=== PATIENT | female | born 1965 | race African-American/Black ===

== ENCOUNTER 2016-11-16 10:00 | Day surgery (SDC) | payer BC, OTHER ==
[2016-11-15 13:57] VITALS: BMI 27.1
[2016-11-16 10:44] VITALS: TEMP 98.2
[2016-11-16] MEDS ORDERED: PROPOFOL 20 ML ONE (12:02)
[2016-11-16] MEDS ORDERED: MIDAZOLAM HCL 2 MG/2 ML SINGLE DOSE VIAL ONE (12:02)
[2016-11-16] MEDS ORDERED: LIDOCAINE HCL 1%, 10 MG/ML (50 mL VIAL) IJ ONE (12:17)
[2016-11-16] MEDS ORDERED: BUPIVACAINE HCL/PF 0.25% (2.5MG/ML) 10 ML VIAL IJ ONE (12:17)
[2016-11-16] MEDS ORDERED: BETAMET ACET/BETAMET NA PH 30 MG/5 ML VIAL IJ ONE (12:18)
[2016-11-16] MEDS ORDERED: IOHEXOL 180 MG/1 ML ML IJ ONE (12:18)
[2016-11-16] MEDS ORDERED: BUPIVACAINE HCL/PF 0.25% (2.5MG/ML) 10 ML VIAL ONE (12:25)
[2016-11-16] MEDS ORDERED: LIDOCAINE HCL 1%, 10 MG/ML (20ML VIAL) ONE (12:25)
[2016-11-16] MEDS ORDERED: BETAMET ACET/BETAMET NA PH 30 MG/5 ML VIAL ONE (12:25)
[2016-11-16 15:11] VITALS: BP 115/67; PULSE 59
--- NOTE | 2016-11-21 19:22 | OP ---
DATE OF OPERATION: 11/16/2016 PREOPERATIVE DIAGNOSIS: Low back pain with lumbar radiculopathy on the right side. POSTOPERATIVE DIAGNOSIS: Low back pain with lumbar radiculopathy on the right side. PROCEDURE: Lumbar epidural steroid injection, interlaminar approach. ANESTHESIA: Local and MAC. ANESTHESIOLOGIST: Yani Kumar MD PROCEDURE: I discussed to her about risks, benefits and alternatives of treatment, not only limited to infection, fever, headache, numbness, tingling, weakness; blood vessels, muscles, or nerve injury. Patient understood, agreed, and signed written consent. The patient was placed in the prone position with head, neck, abdomen supported with pillows. Lumbosacral area was prepped/draped with Betadine x3 and alcohol x3. Under fluoroscopy, right L4-L5 area was identified. At this level, 3 mL of 1% lidocaine was infiltrated in the skin and subcutaneous tissue. A 3-1/2-inch Tuohy needle was used to expose the epidural space with loss of resistance technique under fluoroscopy, both AP and oblique view. Aspiration was negative for CSF and blood. Then 2 mL of Omnipaque 180 was injected to see the flow dye into the epidural space, both cranially and caudally. A solution containing 2.5 mL of Celestone mixed with 2.5 mL of 0.25% preservative-free Marcaine, total volume of 5 mL, was injected at this level after negative aspiration. Then 2 mL of 1% lidocaine was infiltrated. Bleeding was checked. Betadine was wiped off. A sterile bandage was placed. Patient was transferred to recovery room, observed for some time, and discharged as per ASU criteria. Patient was told to apply ice; if any problem, call me or report to ER. Patient was given a followup appointment. MACRINA LY M.D. ELIZABETH/[id number]
== END 2016-11-16 15:15 | disposition home or self-care (01) ==
LOC: JASU-SURG 10:00
PROVIDERS: ATTEND Physical Medicine & Rehabilitation
PROC: 3E0S33Z Introduction of Anti-inflammatory into Epidural Space, Percutaneous Approach (ICD-10-PCS; 2016-11-16)
PROC: B01BYZZ Fluoroscopy of Spinal Cord using Other Contrast (ICD-10-PCS; 2016-11-16)
PROC: 3E0S3BZ Introduction of Anesthetic Agent into Epidural Space, Percutaneous Approach (ICD-10-PCS; principal; 2016-11-16 11:00)
DX: M54.16 Radiculopathy, lumbar region (principal); M54.5 Low back pain
CPT/HCPCS: 76000-TC; 84703